=== PATIENT | female | born 1980 | race Caucasian/White ===

== ENCOUNTER 2017-01-13 20:09 | Emergency (ER) | payer OTHER ==
[~2017-01-13] VITALS: Ht 160 cm; Wt 73.3 kg
[~2017-01-13 20:09] MED LIST: NORCO 5/3251 TABLET PO; PAXIL40 MG PO; WYGESIC,DARV1 TABLET PO; ZOFRAN ODT4 MG PO
[2017-01-13 20:50] LABS: ADD MIUA? YES; BILIRUBIN NEGATIVE; BLOOD MODERATE; COLOR YELLOW ((YELLOW)); GLUCOSE (STRIP) NEGATIVE; KETONES 20; LEUKOCYTES MODERATE; NITRITE NEGATIVE; PROTEIN (STRIP) 100; SPECIFIC GRAVITY 1.016 (1.000-1.030); UROBILINOGEN 0.2 MG/DL (0.2-1.0)
[2017-01-13 21:04] LABS: BACTERIA RARE /HPF; EPITHELIAL CELLS 1+ /HPF; MUCUS 4+ /LPF; RED BLOOD CELLS TNTC /HPF (0-5); UCUL ADDED? YES; WHITE BLOOD CELLS TNTC /HPF (0-5)
[2017-01-13 21:15] LABS: HEMATOCRIT 38.3 % (36.0-46.0); MCH 30.6 PG (29.0-34.0); MCHC 33.2 G/DL (30.0-36.0); MCV 92.3 FL (83-99); MEAN PLAT.VOLUME 10.2 uM^3 (9.5-12.4); PLATELET COUNT 220 K/uL (156-360); RBC DIS.WIDTH-SD 44.1 % (39-53); RED BLOOD COUNT 4.15 M/uL (3.80-5.20); WHITE BLOOD COUNT 8.2 K/uL (4.1-10.2)
[2017-01-13 21:29] LABS: CHLORIDE 108 mEq/L (99-109); POTASSIUM 3.5 mEq/L (3.7-5.4); SODIUM 139 mEq/L (136-147)
[2017-01-13 21:31] LABS: GLUCOSE 81 mg/dL (70-99)
[2017-01-13 21:32] LABS: ANION GAP 9 MEQ/L (2-14)
[2017-01-13 21:33] LABS: TOTAL BILIRUBIN 0.3 mg/dL (0.0-1.0)
[2017-01-13 21:34] LABS: ALKALINE PHOSPHATASE 55 IU/L (3-129)
[2017-01-13 21:35] LABS: GFR ESTIMATE (CALCULATED) > 59 mL/min/
[2017-01-13 21:36] LABS: UREA NITROGEN (BUN) 14 mg/dL (9-23)
[2017-01-13 21:45] LABS: QUANTITATIVE HCG < 4.0 MIU/ML
[2017-01-13] MEDS ORDERED: BENTYL10 MG PO (22:39)
[2017-01-13] MEDS ORDERED: ZOFRAN ODT4 MG PO (22:39)
[2017-01-13] MEDS ORDERED: CIPRO500 MG PO (22:39)
[2017-01-13 22:55] VITALS: BP 130/69
== END 2017-01-13 22:57 | disposition home or self-care (01) ==
LOC: EME 20:09
PROVIDERS: Nurse Practitioner Family
DX: K52.9 Noninfective gastroenteritis and colitis, unspecified (principal); N39.0 Urinary tract infection, site not specified; N83.01 Follicular cyst of right ovary; K21.9 Gastro-esophageal reflux disease without esophagitis; Z87.442 Personal history of urinary calculi; F17.200 Nicotine dependence, unspecified, uncomplicated
CPT/HCPCS: 74177; 80053; 81003; 84702; 85027; 87086; 99281; 99284; J1885; J2405; J7030

== ENCOUNTER 2017-01-16 15:01 | Emergency (ER) | payer OTHER ==
[~2017-01-16] VITALS: Ht 160 cm; Wt 75.0 kg
[~2017-01-16 15:01] MED LIST changes: +BENTYL10 MG PO; +CIPRO500 MG PO
[2017-01-16 17:48] LABS: HEMATOCRIT 39.2 % (36.0-46.0); MCH 30.8 PG (29.0-34.0); MCHC 32.9 G/DL (30.0-36.0); MCV 93.6 FL (83-99); MEAN PLAT.VOLUME 10.2 uM^3 (9.5-12.4); PLATELET COUNT 224 K/uL (156-360); RBC DIS.WIDTH-CV 13.1 % (11.8-14.6); RBC DIS.WIDTH-SD 44.9 % (39-53); RED BLOOD COUNT 4.19 M/uL (3.80-5.20); WHITE BLOOD COUNT 5.9 K/uL (4.1-10.2)
[2017-01-16 17:52] LABS: ADD MIUA? YES; BILIRUBIN NEGATIVE; BLOOD NEGATIVE; COLOR YELLOW ((YELLOW)); GLUCOSE (STRIP) NEGATIVE; KETONES NEGATIVE; LEUKOCYTES NEGATIVE; NITRITE NEGATIVE; PROTEIN (STRIP) NEGATIVE; SPECIFIC GRAVITY 1.017 (1.000-1.030); UROBILINOGEN 0.2 MG/DL (0.2-1.0)
[2017-01-16 18:03] LABS: CHLORIDE 109 mEq/L (99-109); POTASSIUM 3.9 mEq/L (3.7-5.4); SODIUM 140 mEq/L (136-147)
[2017-01-16 18:05] LABS: GLUCOSE 80 mg/dL (70-99)
[2017-01-16 18:07] LABS: ANION GAP 7 MEQ/L (2-14)
[2017-01-16 18:09] LABS: ALKALINE PHOSPHATASE 51 IU/L (3-129); GFR ESTIMATE (CALCULATED) > 59 mL/min/
[2017-01-16 18:10] LABS: UREA NITROGEN (BUN) 12 mg/dL (9-23)
[2017-01-16 18:14] LABS: BACTERIA NONE SEEN /HPF; EPITHELIAL CELLS 1+ /HPF; MUCUS 1+ /LPF; RED BLOOD CELLS 0-5 /HPF (0-5); UCUL ADDED? NO; WHITE BLOOD CELLS 0-5 /HPF (0-5)
[2017-01-16 18:33] LABS: TOTAL BILIRUBIN 0.2 mg/dL (0.0-1.0)
[2017-01-16 18:55] LABS: AMPHETAMINE NEGATIVE (500 ng/mL); BARBITURATES NEGATIVE (200 ng/mL); BENZODIAZEPINES NEGATIVE (150 ng/mL); COCAINE NEGATIVE (150 ng/mL); INTERNAL CONTROLS VALID? YES; METHADONE NEGATIVE (200 ng/mL); METHAMPHETAMINE NEGATIVE (500 ng/mL); OPIATES (MORPHINE) NEGATIVE (100 ng/mL); OXYCODONE NEGATIVE (100 ng/mL); PHENCYCLIDINE NEGATIVE (25 ng/mL); PROPOXYPHENE NEGATIVE (300 ng/mL); THC CANNABINOIDS PRESUMPTIVE POSITIVE (50 ng/mL); TRICYCLIC ANTIDEPRESSANTS NEGATIVE (300 ng/mL)
[2017-01-16 18:56] LABS: ADD MEDTOX COMMENT Y
[2017-01-16] MEDS ORDERED: NAPROSYN500 MG PO (19:05)
[2017-01-16 19:56] VITALS: BP 99/75
== END 2017-01-16 19:57 | disposition home or self-care (01) ==
LOC: EME 15:01
PROVIDERS: Emergency Medicine
DX: N83.209 Unspecified ovarian cyst, unspecified side (principal); F12.10 Cannabis abuse, uncomplicated; K21.9 Gastro-esophageal reflux disease without esophagitis; F17.200 Nicotine dependence, unspecified, uncomplicated
CPT/HCPCS: 80053; 81003; 84999; 85027; 99281; 99284